=== PATIENT | male | born 1965 | race Caucasian/White ===

== ENCOUNTER 2016-10-09 16:15 | Emergency (ER) | payer OTHER ==
[2016-10-09] MEDS ORDERED: DIPH,PERTUSS(ACELL),TET VAC/PF 0.5 ML VIAL IM ONE (18:44)
[2016-10-09] MEDS ORDERED: [UNRECOGNIZED DRUG - OTHER] PO ONE (19:02)
--- NOTE | 2016-10-09 19:06 | ER NURSING DOCUMENTATION ---
Nurse's Notes [facility] Name:Mirtha Lovell Age:51 yrs Sex:Male :1965 Arrival Date:10/09/2016 Time:16:15 Bed3 Private MD: Diagnosis:Knee Laceration w/o Complication Presentation: 10/09 16:19 Acuity: RONALD 3 rh 16:24 Presenting complaint: Patient states: Pt was using a chain saw at work, kicked back and rh knicked the mid right thigh, laceration that is not bleeding. Transition of care: Home. 16:24 Method Of Arrival: Private Vehicle rh Triage Assessment: 16:25 General: Appears in no apparent distress, Behavior is cooperative. Pain: Complains of rh pain in right quadriceps. Neuro: Level of Consciousness is awake, alert, obeys commands, Oriented to person, place, time, event. Cardiovascular: Capillary refill < 3 seconds. Derm: Skin is intact, is healthy with good turgor, Skin is pink, warm & dry. Musculoskeletal: Circulation, motion, and sensation intact Range of motion intact in all extremities. Injury Description: Laceration sustained to right quadriceps is clean, superficial, 2.6 to 7.5 cm long, not bleeding, was sustained 30-60 minutes ago. is bleeding no active bleeding noted. Historical: - Allergies: No known drug Allergies; - Home Meds: 1. None - PMHx: None; - PSHx: None; - Tetanus: > 10 years. - Ebola Screening: : Patient negative for fever greater than or equal to 101.5 degrees Fahrenheit, and additional compatible Ebola Virus Disease symptoms. - Immunization history: Flu Vaccine None. - Social history: Smoking status: Patient uses tobacco products, current every day smoker. Screenin:27 Infectious Disease Risk None. Abuse screen: Denies threats or abuse. Denies injuries rh from another. Nutritional screening: No deficits noted. Assessment: 16:27 See Triage Assessment done by same RN. rh Vital Signs: 16:26 BP 124 / 74; Pulse 73; Resp 15; Temp 98.1; Pulse Ox 95% on R/A; Weight 104.33 kg; rh Height 6 ft. 4 in. (193.04 cm); Pain 0/10; 19:04 BP 134 / 87; Pulse 65; Resp 15; Pulse Ox 95% on R/A; Pain 0/10; rh 16:26 Body Mass Index 28.00 (104.33 kg, 193.04 cm) rh ED Course: 16:18 Patient arrived in ED. arc 16:19 Triage completed. rh 16:26 Notified ED Physician of patient's arrival and chief complaint. Dr. Ferrer notified. rh 16:27 Valuables Remains with patient Patient has correct armband on for positive rh identification. Bed in low position. Call light in reach. Side rails up X 1. 16:55 Wound care to laceration located on right leg was Irrigation Normal Saline scrub brush arc Patient tolerated well. 17:02 Yvonne Mendez is Primary Nurse. rh 18:27 Assist Provider Assist provider with laceration repair on right quadriceps that was rh between 2.6 to 7.5 cm using sutures. Set up tray. Performed by Phu Ferrer MD Dressed with 4X4s, Kerlix, Patient tolerated well. 18:45 Phu Ferrer MD is Attending Physician. tl1 19:04 Knee immobilizer applied on right knee. rh Administered Medications: 18:37 Drug: Tetanus-Diphtheria Toxoid Adult 0.5 ml; {Certified Nurse Operating Room: [employer]. Exp: 09/19/2017. Lot #: [id number]. } Route: IM; Site: left deltoid; 19:04 Follow up: Response: No adverse reaction rh 19:03 Drug: Cephalexin 1 tablet; Route: PO; 19:04 Follow up: Response: Pharmacy closed - take home med pack Outcome: 18:48 Discharge ordered by . tl1 19:04 Discharged to home ambulatory, with significant other. rh 19:04 Condition: improved 19:04 Discharge Assessment: Patient awake, alert and oriented x 3. No cognitive and/or functional deficits noted. Patient verbalized understanding of disposition instructions. 19:04 Discharge instructions given to patient, significant other, Instructed on discharge instructions, follow up and referral plans. medication usage, Demonstrated understanding of instructions, medications, Prescriptions given X 1. 19:05 Patient left the ED. Signatures: Mone Marmolejo RN Phu Jc MD MD tl1 Chew, [place], Reg [facility] Yvonne Mendez
--- NOTE | 2016-10-11 19:05 | ER PHYSICIAN DOCUMENTATION ---
Physician Documentation [facility] Name:Mirtha Lovell Age:51 yrs Sex:Male :1965 Arrival Date:10/09/2016 Time:16:15 Bed3 Private MD: Phu Gaspar Disposition: 10/11 11:39 Chart complete. tl1 Disposition: 10/09/16 18:48 Discharged to Home/Self Care. Impression: Knee Laceration w/o Complication. - Condition is Good. - Discharge Instructions: Abrasion - LACERATION, Extrem (suture, staple or tape). - Prescriptions for Keflex 500 mg Oral - take 1 capsule by ORAL route every 6 hours for 10 days; 20 capsule. - Medical Reconciliation form form. - Follow up: Emergency Department; When: 2 - 3 days; Reason: WOUND CHECK. - Problem is new. - Symptoms have improved. HPI: 10/09 16:30 This 51 yrs old Male presents to ER via Private Vehicle with complaints of tl1 Laceration To Leg. 16:30 The patient has a laceration related to: Cutting wood with a chain saw. occurred tl1 outdoors, and. The laceration(s) is(are) located on the right quadriceps. Onset: The symptom(s)/episode began/occurred suddenly, just prior to arrival. Associated signs and symptoms: The patient has no apparent associated signs or symptoms. The patient has not experienced similar symptoms in the past. Historical: - Allergies: No known drug Allergies; - Home Meds: 1. None - PMHx: None; - PSHx: None; - Tetanus: > 10 years. - Ebola Screening: : Patient negative for fever greater than or equal to 101.5 degrees Fahrenheit, and additional compatible Ebola Virus Disease symptoms. - Immunization history: Flu Vaccine None. - Social history: Smoking status: Patient uses tobacco products, current every day smoker. ROS: 16:45 Skin: Positive for laceration(s), Negative for tl1 16:45 All other systems are negative. Exam: 16:45 Musculoskeletal/extremity: Extremities: grossly normal except: noted in the right tl1 quadriceps: laceration, 6.5 cm. There are 2 transverse parallel lacerations, just proximal and mostly lateral to the patella, with about 8 mm of skin between them 6-7 mm long with some very superficial lacerations just distal and lateral to these., Circulation is intact in all extremities. Sensation intact. 16:45 Constitutional: This is a well developed, well nourished patient who is awake, alert, tl1 and in no acute distress. 16:45 Head/Face: Normocephalic, atraumatic. 16:45 Cardiovascular: Rate: normal. 16:45 Respiratory: Respirations: normal. 16:45 Skin: injury, laceration(s), the wound is approximately 6.5 cm(s), with a depth of 0.4 cm(s), of the right quadriceps, that can be described as 16:45 Neuro: Exam negative for acute changes. Vital Signs: 16:26 BP 124 / 74; Pulse 73; Resp 15; Temp 98.1; Pulse Ox 95% on R/A; Weight 104.33 kg; rh Height 6 ft. 4 in. (193.04 cm); Pain 0/10; 19:04 BP 134 / 87; Pulse 65; Resp 15; Pulse Ox 95% on R/A; Pain 0/10; rh 16:26 Body Mass Index 28.00 (104.33 kg, 193.04 cm) rh Laceration: 16:45 Wound Repair of 6.5cm ( 2.6in ) subcutaneous laceration to right quadriceps. Linear tl1 shaped.. Minimal contamination.. Distal neuro/vascular/tendon intact. Anesthesia: Wound infiltrated with 8 mls of 0.5% marcaine. Wound prep: Extensive cleansing, Wound explored extensively, Copious irrigation. Skin closed with 6 thin layer Ethilon using Interrupted sutures. Dressed with Bacitracin, 4x4's, Kerlix. Patient tolerated well. MDM: 16:28 Patient medically screened. tl1 10/09 16:27 Order name: Wound Care; Complete Time: 17:03 rh 10/09 19:04 Order name: ORTHO: Knee Immobilizer; Complete Time: 19:04 rh Dispensed Medications: 18:37 Drug: Tetanus-Diphtheria Toxoid Adult 0.5 ml; {Radiator Fitter: [employer]. Exp: 09/19/2017. Lot #: [id number]. } Route: IM; Site: left deltoid; 19:04 Follow up: Response: No adverse reaction rh 19:03 Drug: Cephalexin 1 tablet; Route: PO; rh 19:04 Follow up: Response: Pharmacy closed - take home med pack rh Signatures: Mone Marmolejo RN RN Phu Sher MD MD tl1 Yvonne Mendez
== END 2016-10-09 19:06 | disposition home or self-care (01) ==
LOC: ER 16:15
DX: S81.811A Laceration without foreign body, right lower leg, initial encounter (principal); W29.3XXA Contact with powered garden and outdoor hand tools and machinery, initial encounter; Y92.59 Other trade areas as the place of occurrence of the external cause; Y93.H9 Activity, other involving exterior property and land maintenance, building and construction; Y99.0 Civilian activity done for income or pay; Z23 Encounter for immunization
CPT/HCPCS: 12032; 90471; 99284

== ENCOUNTER 2016-10-12 16:13 | Emergency (ER) | payer OTHER ==
--- NOTE | 2016-10-12 16:28 | ER NURSING DOCUMENTATION ---
Nurse's Notes [facility] Name:Mirtha Lovell Age:51 yrs Sex:Male :1965 Arrival Date:10/12/2016 Time:16:13 Bed1 Private MD: Diagnosis:Laceration - Recheck Presentation: 10/12 16:23 Acuity: RONALD 5 rh 16:23 Presenting complaint: Patient states: PT here for wound recheck. Transition of care: rh Home. 16:23 Method Of Arrival: Private Vehicle Triage Assessment: 16:24 General: Appears in no apparent distress, Behavior is cooperative. Pain: Denies pain. rh Musculoskeletal: Circulation, motion, and sensation intact Range of motion intact in all extremities. Injury Description: Wound Recheck - site is clean dry and intact. No redness or swelling. Pt denies pain. Site is well approximated. Historical: - Allergies: No known drug Allergies; - Home Meds: 1. None - PMHx: NONE; Knee Laceration w/o Complication (October 09, 2016); - PSHx: NONE; - Tetanus: < 10 years. - Ebola Screening: : Patient negative for fever greater than or equal to 101.5 degrees Fahrenheit, and additional compatible Ebola Virus Disease symptoms. - Immunization history: Flu Vaccine None. - Social history: Smoking status: Patient uses tobacco products, current every day smoker. Screenin:25 Infectious Disease Risk None. Abuse screen: Denies threats or abuse. Denies injuries rh from another. Nutritional screening: No deficits noted. Assessment: 16:25 See Triage Assessment done by same RN. rh Vital Signs: 16:25 Pulse 65; Resp 15; Temp 98.4(O); Pulse Ox 96% on R/A; Pain 0/10; rh ED Course: 16:14 Patient arrived in ED. ds 16:23 Triage completed. rh 16:25 Valuables Remains with patient Patient has correct armband on for positive rh identification. 16:25 Recheck of Sutures on right quadriceps is clean and dry, with edges well approximated, rh healing well. Administered Medications: No medications were administered Outcome: 16:26 Discharged to home ambulatory. rh 16:26 Condition: improved 16:26 Discharge instructions given to patient, Instructed on discharge instructions, follow up and referral plans. wound care, Demonstrated understanding of instructions. 16:27 Discharge ordered by MD. rh 16:27 Patient left the ED. rh 16:41 No charge visit due to recheck of site. rh Signatures: Blanca Castañeda Reg Reg ds Hofsess, Rachel
== END 2016-10-12 16:28 | disposition home or self-care (01) ==
LOC: ER 16:13
DX: Z51.89 Encounter for other specified aftercare (principal); S81.811D Laceration without foreign body, right lower leg, subsequent encounter; W29.3XXD Contact with powered garden and outdoor hand tools and machinery, subsequent encounter